=== PATIENT | male | born 1995 | race Two or more races ===

== ENCOUNTER 2024-05-06 16:26 | Emergency (ER) | payer SELFPAY ==
[~2024-05-06] VITALS: Ht 177.8 cm; Wt 86.8 kg
[2024-05-06 17:01] VITALS: BP 132/72; PULSE 57; RESP 18; TEMP 98.1; O2SAT 99
== END 2024-05-06 17:27 | disposition home or self-care (01) ==
LOC: ER 16:36
DX: S62.325A Displaced fracture of shaft of fourth metacarpal bone, left hand, initial encounter for closed fracture (principal); X50.9XXA Other and unspecified overexertion or strenuous movements or postures, initial encounter; Y93.89 Activity, other specified; Y92.89 Other specified places as the place of occurrence of the external cause; Y99.8 Other external cause status
CPT/HCPCS: 29125; 73130